=== PATIENT | female | born 1985 | race African-American/Black ===

== ENCOUNTER 2020-05-30 09:39 | Emergency (ER) | payer MEDICAID ==
[~2020-05-30] VITALS: Ht 167.6 cm; Wt 95.3 kg
[2020-05-30 09:41] VITALS: BP 124/79
== END 2020-05-30 10:29 | disposition home or self-care (01) ==
LOC: ED 10:23
DX: H04.322 Acute dacryocystitis of left lacrimal passage (principal); F17.200 Nicotine dependence, unspecified, uncomplicated
CPT/HCPCS: 99283

== ENCOUNTER 2020-07-23 09:10 | Emergency (ER) | payer MEDICAID ==
[~2020-07-23] VITALS: Ht 167.6 cm; Wt 96.9 kg
[2020-07-23 09:28] VITALS: BP 118/85
[2020-07-23] MEDS ORDERED: FLUCONAZOLE 100 MG TABLET ONE (10:42)
[2020-07-23 10:51] LABS: CLUE CELLS NONE SEEN (NONE SEEN); WET PREP WBCS FEW (FEW)
[2020-07-23] MEDS ORDERED: FLUCONAZOLE 100 MG TABLET PO ONE (11:00)
[2020-07-23] MEDS ORDERED: CEFTRIAXONE 250 MG IM ONE (11:00)
[2020-07-23] MEDS ORDERED: AZITHROMYCIN 500 MG TABLET PO ONE (11:00)
[2020-07-23] MEDS ORDERED: LIDOCAINE-MPF 1%, 2ML ONE (11:01)
[2020-07-23] MEDS ORDERED: CEFTRIAXONE 1,000 MG ONE (11:02)
[2020-07-23] MEDS ORDERED: AZITHROMYCIN 250 MG TABLET ONE (11:02)
--- NOTE | 2020-07-23 11:27 | NUR ---
BG 63. ORANGE JUICE AND SNACK PROVIDED.
== END 2020-07-23 11:52 | disposition home or self-care (01) ==
LOC: ED 11:01
DX: B37.3 Candidiasis of vulva and vagina (principal); H01.001 Unspecified blepharitis right upper eyelid; N89.8 Other specified noninflammatory disorders of vagina; L29.9 Pruritus, unspecified
CPT/HCPCS: 82962; 87210; 87491; 87591; 87808; 96372; 99284; J0696

== ENCOUNTER 2020-11-04 10:19 | Emergency (ER) | payer MEDICAID ==
[~2020-11-04] VITALS: Ht 167.6 cm; Wt 97.9 kg
[2020-11-04 10:25] VITALS: BP 119/75
[2020-11-04] MEDS ORDERED: FLUCONAZOLE 100 MG TABLET PO ONE (11:00)
[2020-11-04] MEDS ORDERED: FLUCONAZOLE 100 MG TABLET ONE (11:17)
== END 2020-11-04 11:29 | disposition home or self-care (01) ==
LOC: ED 11:19
DX: B37.3 Candidiasis of vulva and vagina (principal); F17.200 Nicotine dependence, unspecified, uncomplicated
CPT/HCPCS: 99283

== ENCOUNTER 2020-11-11 14:48 | Emergency (ER) | payer MEDICAID ==
[~2020-11-11] VITALS: Ht 167.6 cm; Wt 95.8 kg
[2020-11-11 16:19] VITALS: BP 141/106
--- NOTE | 2020-11-11 17:05 | NUR ---
Patient given discharge instructions and they have confirmed that they understand the instructions. Patient ambulatory with steady gait.
== END 2020-11-11 17:07 | disposition home or self-care (01) ==
LOC: ED 17:01
DX: U07.1 COVID-19 (principal); B34.9 Viral infection, unspecified; R06.02 Shortness of breath; I10 Essential (primary) hypertension; J45.909 Unspecified asthma, uncomplicated; F17.210 Nicotine dependence, cigarettes, uncomplicated
CPT/HCPCS: 71045; 99284; U0003; U0005

== ENCOUNTER 2020-12-05 13:47 | Emergency (ER) | payer MEDICAID ==
[~2020-12-05] VITALS: Ht 167.6 cm; Wt 98.7 kg
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
--- NOTE | 2020-12-05 15:52 | NUR ---
PT TO CT. NO C-COLLAR PRESENT.
[2020-12-05] MEDS ORDERED: LABE100T6 PO (16:47)
--- NOTE | 2020-12-05 16:55 | NUR ---
PT IN RADIOLOGY
[2020-12-05] MEDS ORDERED: KETOROLAC 60 MG/2 ML ONE (17:48)
--- NOTE | 2020-12-05 17:55 | NUR ---
TORADOL GIVEN PER EMAR
[2020-12-05 17:57] VITALS: BP 166/109
[2020-12-05] MEDS ORDERED: KETOROLAC 30 MG/1 ML IM ONE (18:00)
== END 2020-12-05 18:16 | disposition home or self-care (01) ==
LOC: ED 18:00
DX: S16.1XXA Strain of muscle, fascia and tendon at neck level, initial encounter (principal); V49.49XA Driver injured in collision with other motor vehicles in traffic accident, initial encounter; Y93.89 Activity, other specified; Y92.410 Unspecified street and highway as the place of occurrence of the external cause; Y99.8 Other external cause status
CPT/HCPCS: 71101; 72072; 72110; 72125; 73630; 96372; 99284; J1885

== ENCOUNTER 2021-01-29 12:15 | Emergency (ER) | payer MEDICAID ==
[~2021-01-29] VITALS: Ht 167.6 cm; Wt 97.3 kg
[~2021-01-29 12:15] MED LIST: LABE100T6 PO
[2021-01-29 12:17] VITALS: BP 177/119
--- NOTE | 2021-01-29 12:36 | NUR ---
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
== END 2021-01-29 13:54 | disposition left against medical advice (07) ==
LOC: ED 13:53
DX: R30.9 Painful micturition, unspecified (principal); Z53.21 Procedure and treatment not carried out due to patient leaving prior to being seen by health care provider